=== PATIENT | female | born 2000 | race Caucasian/White ===

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

== ENCOUNTER 2018-03-28 11:06 | Emergency (ER) | payer MEDICAID ==
[~2018-03-28] VITALS: Ht 152.4 cm; Wt 59.0 kg
[2018-03-28 11:09] VITALS: BP_SYST 134
[2018-03-28] MEDS ORDERED: DIPH-TET-PERTUS Vaccine 0.5 ML VIAL (ADACEL) I.M. ONE (12:00)
[2018-03-28 12:53] VITALS: BP_SYST 107
== END 2018-03-28 12:53 | disposition home or self-care (01) ==
LOC: MERGE 11:35 → SED 11:35
DX: S01.01XA Laceration without foreign body of scalp, initial encounter (principal); W11.XXXA Fall on and from ladder, initial encounter; Y93.39 Activity, other involving climbing, rappelling and jumping off; Y92.89 Other specified places as the place of occurrence of the external cause; Y99.8 Other external cause status
CPT/HCPCS: 70450-TC; 81025; 90715; 99284

== ENCOUNTER 2019-12-24 01:04 | Emergency (ER) | payer MEDICAID ==
[~2019-12-24] VITALS: Ht 152.4 cm; Wt 59.0 kg
[2019-12-24 01:13] VITALS: BP_SYST 110
[2019-12-24] MEDS ORDERED: cefTRIAXone 1 GM in LIDOCAINE 1%, 20 ML MDV 2.1 ML IM ONE ×4 (01:45)
[2019-12-24] MEDS ORDERED: AZITHROMYCIN 250 MG TABLET PO ONE (01:45)
[2019-12-24 02:00] VITALS: BP_SYST 110
[2019-12-24 02:38] LABS: BILIRUBIN,URINE 1+ (NEGATIVE); CLARITY/URINE CLEAR (CLEAR); COLOR,URINE YELLOW (YELLOW); GLUCOSE,URINE NEGATIVE (NEGATIVE); KETONES,URINE NEGATIVE (NEGATIVE); LEUKOCYTE ESTERASE ,URINE 3+ (NEGATIVE); NITRITE, URINE NEGATIVE (NEGATIVE); PH,URINE 6.5 (5.0-8.0); PROTEIN URINE TRACE (NEGATIVE)
[2019-12-24 02:52] LABS: BLOOD, URINE TRACE (NEGATIVE)
[2019-12-24 02:58] LABS: BACTERIA,URINE MODERATE /HPF (None Seen); CALCIUM OXALATE CRYSTALS,UR 0-10 /HPF (None Seen); WBC,URINE >100 /HPF (0-3)
[2019-12-24 02:59] LABS: HCG,QUAL RESULT POSITIVE (NEGATIVE)
== END 2019-12-24 02:00 | disposition home or self-care (01) ==
LOC: SED 01:04
DX: O23.42 Unspecified infection of urinary tract in pregnancy, second trimester (principal); Z3A.17 17 weeks gestation of pregnancy
CPT/HCPCS: 81000; 81025; 84703; 87086; 96372; 99283; J0696; J2001; Q0144